=== PATIENT | female | born 1950 | race Asian ===

== ENCOUNTER 2018-07-14 18:31 | Inpatient (IN) | payer OTHER, MEDICAID ==
[~2018-07-14] VITALS: Ht 162.6 cm; Wt 54.4 kg
[~2018-07-14 18:31] MED LIST: ASPI81EC97 PO; FURO-570 PO; METO10TA10 PO; OMEP20TA56 PO; SIMV20TA1 PO; [UNRECOGNIZED DRUG - CODE] PO
--- NOTE | 2018-07-14 18:31 | NUR ---
PT BIBA BLS TO BED 2
[2018-07-14 18:39] VITALS: BP 102/67
[2018-07-14] MEDS ORDERED: [UNRECOGNIZED DRUG - CODE] PO (18:50)
[2018-07-14] MEDS ORDERED: SIMV10TA1 PO (18:50)
[2018-07-14] MEDS ORDERED: SENN-72 PO (18:50)
[2018-07-14] MEDS ORDERED: OSC500 PO (18:50)
[2018-07-14] MEDS ORDERED: KEP500 PO (18:50)
--- NOTE | 2018-07-14 19:10 | NUR ---
RECEIVED REPORT FROM AM RN. 68/F PTAY FROM [facility] FOR ABN LABS AND EVAL FOR RENAL CALCULI. PT ON MONITOR, VSS, SPO2 99% ON O2 2L NC, RR 13 EVEN AND UNLABORED. PT AWAKE, APHASIC, BEDBOUND WITH CONTRACTURES. PT HAS A L WRIST 22G IV. LUNG SOUNDS CLEAR BL. ABD SOFT ROUND NONTENDER. SACRAL WOUND NOTED. HX OSTEOPOROSIS, CONTRACTURES, PATHOGICAL FX, DYSPHAGIA, GERD, MALNUTRITION, DEMENTIA, ALZ, APHASIA, CHF, PAD. SAFETY MEASURES ENSURED. ER MD MADE AWARE.
[2018-07-14] MEDS ORDERED: NACL 0.9% 1,000 ML IV SCH (20:35)
[2018-07-14] MEDS ORDERED: ONDANSETRON 4 MG/2 ML VIAL IVP ONE (20:35)
[2018-07-14] MEDS ORDERED: ONDANSETRON 4 MG/2 ML VIAL IVP PRN (21:45)
[2018-07-14] MEDS ORDERED: ZOLPIDEM 5 MG TAB PO PRN (21:45)
[2018-07-14] MEDS ORDERED: ACETAMINOPHEN 325 MG TAB PO PRN (21:45)
--- NOTE | 2018-07-14 21:48 | NUR ---
SHADY, CANDY MAKER CALLED, UNABLE TO USE CBC THAT SHE SWATI EARLIER ON PT. PT DIFFICULT STICK PER SHADY, LAB DRAW WILL HAVE TO WAIT UNTIL NEW SHIFT AT 11PM. DR VALDEZ MADE AWARE
[2018-07-14 21:54] LABS: ALBUMIN 2.6 g/dL (3.4-5.0); ANION GAP 6.2 (8-16); CARBON DIOXIDE 32.9 mmol/L (21-32); CREATININE 1.7 mg/dL (0.6-1.3); POTASSIUM 4.1 mmol/L (3.5-5.1); TOTAL BILIRUBIN 0.2 mg/dL (0.0-1.0)
--- NOTE | 2018-07-14 22:00 | NUR ---
PT RESTING IN BED, VSS, RR EVEN AND UNLABORED. PT TAKEN TO CT AT THIS TIME
[2018-07-14 22:05] LABS: APPEARANCE,URINE SL CLOUDY (CLEAR); BILIRUBIN,URINE NEGATIVE (NEGATIVE); BLOOD, URINE 1+ (NEGATIVE); COLOR,URINE YELLOW (YELLOW); LEUKOCYTE ESTERASE ,URINE 1+ (NEGATIVE); NITRITE, URINE POSITIVE (NEGATIVE); UGLUCOSE NEGATIVE (NEGATIVE)
[2018-07-14 22:20] LABS: RBC,URINE 11-20 (MOD) /HPF (0-5); WBC,URINE 20-60 /HPF (0-5)
[2018-07-14] MEDS ORDERED: NACL 0.9% 1,000 ML IV ONE (22:25)
--- NOTE | 2018-07-14 22:25 | NUR ---
Patient will be admitted to care of DR. SOOD. Admited to TELE. Will go to room 120A. Belongings list completed. Report to DARIUS LR.
[2018-07-14] MEDS: NACL 0.9% 1,000 ML IV SCH (22:42)
[2018-07-14 22:45] VITALS: BP 153/97
--- NOTE | 2018-07-14 22:45 | NUR ---
REPORT RECEIVED FROM ED NURSE AT BEDSIDE. PT IN STABLE CONDITION. AAOX2. BOARD UPDATED AND INTRODUCED SELF TO PT. PT IS APHASIC. ON 2L VIA NC. POLST IN CHART. IV SITE PATENT AND INTACT LEFT WRIST 22G. SKIN WARM, DRY, AND INTACT BUT HAS SACRAL REDNESS. PT IS A FALL RISK. BED LOCKED IN LOW POSITION. CALL ROCHA WITHIN REACH.
[2018-07-14] MEDS ORDERED: FERR75LI22 PO (23:00)
[2018-07-14] MEDS ORDERED: POTA20SO16 PO (23:00)
[2018-07-14] MEDS ORDERED: ASCO500T45 PO (23:00)
[2018-07-14] MEDS ORDERED: KEP500L PO (23:00)
[2018-07-14 23:26] LABS: HEMOGLOBIN 12.9 g/dL (12.0-16.0); MEAN CORPUSCULAR HEMOGLOBIN 29 pg (27-31); MEAN CORPUSCULAR HGB CONC 30 g/dL (33-37); MEAN CORPUSCULAR VOLUME 96.5 fL (80-94); PLATELET COUNT (AUTO) 96 K/uL (140-450); RED BLOOD CELL COUNT(AUTO) 4.43 MIL/uL (4.20-5.40); RED CELL DISTRIBUTION WIDTH 14.9 % (11.6-13.7); WHITE BLOOD COUNT (AUTO) 11.1 K/uL (4.8-10.8)
[2018-07-14] MEDS ORDERED: PIPERACILLIN/TAZOBACTAM 3.375 GM VIAL IV ONE (23:51)
[2018-07-14 23:57] LABS: FREE T4 (FREE THYROXINE) 0.96 ng/dL (0.76-1.46); MAGNESIUM 2.9 mg/dL (1.8-2.4); PHOSPHORUS 2.5 mg/dL (2.5-4.9); PROTHROMBIN TIME 9.7 secs (10.8-13.4); THYROID STIMULATING HORMONE 4.5 uIU/mL (0.34-3.74)
[2018-07-15] VITALS: BP 111/52
--- NOTE | 2018-07-15 | NUR ---
MUNIR TEAGUE. PT TOLERATED WELL. NO S/S OF ADVERSE REACTIONS. Addendum: 07/15/18 at 0149 by Usama Verma RN OVERRIDDEN FROM PYXIS. IT WAS A NEW MED. DUPLICATE ORDER IN EMAR.
[2018-07-15] MEDS: PIPER/TAZO 3.375GM/D5W PREMIX 50 ML IV SCH ×4 (00:03→18:00)
[2018-07-15 00:07] LABS: HEMATOCRIT 38.7 % (36-48)
[2018-07-15 00:09] LABS: LYMPHOCYTES % (MANUAL) 65 % (20-46); MONOCYTES % (MANUAL) 2 % (5-12)
[2018-07-15] MEDS ORDERED: cefTRIAXone 1,000 MG VIAL ONE (00:33)
--- NOTE | 2018-07-15 00:45 | NUR ---
ROCEPHIN 1000MG HUNG. PT TOLERATED WELL. NEW ORDER AND NEW MED. DUPLICATE ORDER IN EMAR.
[2018-07-15] MEDS: NACL 0.45% 1,000 ML IV SCH ×2 (00:48→14:21)
--- NOTE | 2018-07-15 03:30 | NUR ---
PT VS STABLE. PT SLEEPING SUPINE. CHEST EXPANSION IS VISIBLE. WILL CONTINUE TO MONITOR.
[2018-07-15 04:00] VITALS: BP 123/52
[2018-07-15] MEDS: CALCIUM CARBONATE 500 MG TAB PO SCH ×4 (05:00→21:58)
[2018-07-15] MEDS ORDERED: PIPERACILLIN/TAZOBACTAM 3.375 GM VIAL IV ONE (05:10)
--- NOTE | 2018-07-15 05:15 | NUR ---
MUNIR TEAGUE. DUPLICATE ORDER DUE TO MED BEING NEW AND OVERRIDDEN. OSCAL DENIED BY PATIENT.
[2018-07-15 06:51] LABS: EOSINOPHILS # (AUTO) 0.1 K/uL (0-0.4); HEMOGLOBIN 11.1 g/dL (12.0-16.0); LYMPHOCYTES # (AUTO) 2.6 K/uL (2.5-16.5)
[2018-07-15 07:00] LABS: BASOPHILS % (AUTO) 0.2 % (0.0-2.0); EOSINOPHILS % (AUTO) 2.4 % (0.0-4.0); HEMATOCRIT 35.4 % (36-48); LYMPHOCYTES % (AUTO) 47.7 % (20.5-51.1); MEAN CORPUSCULAR HEMOGLOBIN 30 pg (27-31); MEAN CORPUSCULAR HGB CONC 31 g/dL (33-37); MONOCYTES # (AUTO) 0.5 K/uL (0.8-1.0); MONOCYTES % (AUTO) 8.2 % (1.7-9.3); NEUTROPHILS # (AUTO) 2.3 K/uL (1.8-7.7); NEUTROPHILS % (AUTO) 41.5 % (42.2-75.2); PLATELET COUNT (AUTO) 66 K/uL (140-450); RED BLOOD CELL COUNT(AUTO) 3.69 MIL/uL (4.20-5.40); RED CELL DISTRIBUTION WIDTH 14.5 % (11.6-13.7); WHITE BLOOD COUNT (AUTO) 5.5 K/uL (4.8-10.8)
[2018-07-15 07:11] LABS: ANION GAP 6.8 (8-16); CARBON DIOXIDE 31.7 mmol/L (21-32); CREATININE 1.5 mg/dL (0.6-1.3); POTASSIUM 3.5 mmol/L (3.5-5.1)
--- NOTE | 2018-07-15 07:25 | NUR ---
REPORT GIVEN TO AM NURSE AT BEDSIDE. PT IN STABLE CONDITION.
--- NOTE | 2018-07-15 07:26 | NUR ---
RECEIVED REPORT FROM TRUCK DESPATCHER NURSE ADELINE AT BEDSIDE FOR CONTINUITY OF CARE. PT IS AWAKE BUT APHASIC. INTRODUCED SELF AND UPDATED BOARD. NO SOB, NO COUGH. LUNG SOUNDS DIMINISHED. O2 SAT 94% ON O2 NC 2L. WITH SACRAL REDNESS. COVERED WITH OPTIFOAM DRESSING. IV TO L WRIST 22G INTACT. NO SIGNS OF DISTRESS. CALL LIGHT WITHIN REACH. BED IN LOW POSITION, WHEELS LOCKED. BED ALARM ON. WILL CONTINUE TO MONITOR.
[2018-07-15 07:27] LABS: CHOL/HDL RATIO 3.8 (1-4.5); MAGNESIUM 2.6 mg/dL (1.8-2.4); PHOSPHORUS 2.5 mg/dL (2.5-4.9)
[2018-07-15] MEDS: NACL 0.9% 1,000 ML IV SCH (07:41)
[2018-07-15 08:00] VITALS: BP 136/74
[2018-07-15] MEDS ORDERED: NON-FORMULARY ITEM (Ferrous Sulfate 330 MG) PO SCH (08:00)
[2018-07-15] MEDS ORDERED: OMEPRAZOLE MAGNESIUM 20 MG PO SCH (09:00)
[2018-07-15] MEDS ORDERED: NON-FORMULARY ITEM (Multivit with Min #53/FA/K/Q10 (Dekas Plus Softgel) 1 EACH) PO SCH (09:00)
[2018-07-15] MEDS ORDERED: NON-FORMULARY ITEM (Aspirin (Aspir 81) 81 MG) PO SCH (09:00)
[2018-07-15] MEDS ORDERED: POTASSIUM CHLORIDE 30 MEQ PO SCH (09:00)
--- NOTE | 2018-07-15 09:12 | NUR ---
PATIENT HAS BEEN SCREENED AND CATEGORIZED HIGH NUTRITION RISK. PATIENT WILL BE SEEN WITHIN 1-2 DAYS OF ADMISSION. 07/15/18 07/16/[address]
[2018-07-15] MEDS: FERROUS SULFATE 300 MG/5 ML UDC PO SCH ×2 (09:33→09:40)
[2018-07-15] MEDS: POTASSIUM CHLORIDE 10 MEQ TABER PO SCH ×2 (09:34→09:42)
[2018-07-15] MEDS: ASCORBIC ACID 500 MG TAB PO SCH ×2 (09:34→09:43)
[2018-07-15] MEDS: MULTIVITAMIN/MINERALS 1 TAB PO SCH ×2 (09:34→09:43)
[2018-07-15] MEDS: SENNA 8.6 MG TAB PO SCH ×2 (09:34→09:41)
[2018-07-15] MEDS: DOCUSATE SODIUM 100 MG GELCAP PO SCH ×2 (09:35→09:41)
[2018-07-15] MEDS: ECOTRIN 81 MG TABEC PO SCH ×2 (09:35→09:42)
[2018-07-15] MEDS: PANTOPRAZOLE 40 MG TABEC PO SCH ×2 (09:35→09:42)
[2018-07-15] MEDS: levETIRAcetam 100 MG/ML ORASYR PO SCH ×2 (09:35→09:41)
--- NOTE | 2018-07-15 09:44 | NUR ---
GAVE PT'S SCHEDULED MEDS. AFTER OPENING ALL MEDS. PT SPIT OUT MEDS AND REFUSED MEDS. NON-ADMIN SCHEDULED MEDS AND WASTED ALL OPENED MEDS. PT ALSO REFUSED BREAKFAST TRAY ASSISTED BY BOLT MAKER. PT'S DAUGHTER WAS AT BEDSIDE AND SAID TO TRY TO FEED PT AGAIN LATER. PT WENT BACK TO SLEEP. NO SIGNS OF DISTRESS. BED ALARM ON. BED IN LOW POSITION, WILL CONTINUE TO MONITOR.
--- NOTE | 2018-07-15 11:07 | NUR ---
CHECKED ON PT IN ROOM. PT WITH DECREASED APPETITE. REFUSED TO FINISH BREAKFAST TRAY. SLEEPING NOW WITH VISIBLE RESPIRATIONS, NO SIGNS OF DISTRESS. CALL LIGHT WITHIN REACH. BED IN LOW POSITION, BED ALARM ON. WILL CONTINUE TO MONITOR.
[2018-07-15 12:00] VITALS: BP 133/45
--- NOTE | 2018-07-15 14:45 | NUR ---
PT'S DAUGHTERS AT BEDSIDE. DR. ROBBINS CAME IN AND SPOKE WITH PT AND FAMILY. PT SLEEPING RIGHT NOW. DID NOT WANT TO EAT LUNCH TRAY DUE TO PT FALLING ASLEEP. PER DAUGHTER NOMI, STATED "SHE IS GETTING MORE SLEEP NOW THAN SHE DID BEFORE." NO SIGNS OF DISTRESS. BED IN LOW POSITION, WHEELS LOCKED. WILL CONTINUE TO MONITOR.
[2018-07-15 16:00] VITALS: BP 100/44
--- NOTE | 2018-07-15 16:03 | NUR ---
07/15/18 RD INITIAL ASSESSMENT COMPLETED PLEASE REFER TO NUTRITION ASSESSMENT UNDER CARE ACTIVITY FOR ESTIMATED NUTRITIONAL NEEDS. 1. CONTINUE REGULAR PUREE DIET TOLERATED 2. RECOMMEND ENSURE ENLIVE TID WITH MEALS 3. RD TO FOLLOW-UP 2-3 DAYS, HIGH RISK ESTELLA WATSON, RD
--- NOTE | 2018-07-15 19:30 | NUR ---
ENDORSED PT TO PRICING ACTUARY NURSE KANE AT BEDSIDE FOR CONTINUITY OF CARE. PT IN STABLE CONDITION.
--- NOTE | 2018-07-15 19:31 | NUR ---
RECEIVED REPORT FROM ADOLPH RN DAYSHIFT NURSE AT BEDSIDE FOR CONTINUITY OF CARE, PT IN STABLE CONDITION.
--- NOTE | 2018-07-15 20:00 | NUR ---
PT IN LOW BED, TURNED TO RIGHT SIDE WITH SIDE RAILS UP X 2 AND ALL FALLS PRECAUTIONS IN PLACE. PT HAS N/C RUNNING AT 2 LITERS 02 IS 100% . PT REMAINS ON TELE MONITORING AND B/P IS 128/60 AND P 58. PT TEMP IS 97.4 TAKEN AUXILIARY. PT EYE PUPILS EQUAL AND REACTIVE AND SHE HAS NO S/S OF PAIN OR DISTRESS. PT HAS IV SITE 22G ON R WRIST ASYMPTOMATIC AND RUNNING D 5 1/2 NS.
[2018-07-15] MEDS ORDERED: DONEPEZIL HCL 10 MG PO SCH (21:00)
[2018-07-15] MEDS: DONEPEZIL 10 MG TAB PO SCH (21:55)
[2018-07-15] MEDS: SIMVASTATIN 10 MG TAB PO SCH (21:56)
--- NOTE | 2018-07-15 22:00 | NUR ---
PT HAD DIFFICULTY SWALLOWING ORDERED MEDICATION, INFORMED RESIDENT MD WITH REQUEST FOR SWALLOW EVALUATION. PT TURNED , CHANGED AND REPOSITIONED.
[2018-07-16 01:59] VITALS: BP 162/70
[2018-07-16 04:00] VITALS: BP 112/41
[2018-07-16] MEDS: CALCIUM CARBONATE 500 MG TAB PO SCH ×3 (05:00→21:52)
--- NOTE | 2018-07-16 06:18 | NUR ---
PT ASLEEP , SHE WAS TURNED, CHANGED AND REPOSITIONED AND IS SLEEPING SOUNDLY.
[2018-07-16] MEDS: PIPER/TAZO 3.375GM/D5W PREMIX 50 ML IV SCH ×4 (06:22→18:05)
[2018-07-16 06:39] LABS: BASOPHILS % (AUTO) 0.2 % (0.0-2.0); EOSINOPHILS # (AUTO) 0.2 K/uL (0-0.4); EOSINOPHILS % (AUTO) 3.1 % (0.0-4.0); HEMATOCRIT 38.3 % (36-48); LYMPHOCYTES # (AUTO) 2.5 K/uL (2.5-16.5); MEAN CORPUSCULAR HEMOGLOBIN 30 pg (27-31); MEAN CORPUSCULAR HGB CONC 31 g/dL (33-37); MEAN CORPUSCULAR VOLUME 94.4 fL (80-94); MONOCYTES # (AUTO) 0.5 K/uL (0.8-1.0); MONOCYTES % (AUTO) 7.9 % (1.7-9.3); NEUTROPHILS # (AUTO) 3.1 K/uL (1.8-7.7); NEUTROPHILS % (AUTO) 48.8 % (42.2-75.2); PLATELET COUNT (AUTO) 80 K/uL (140-450); RED BLOOD CELL COUNT(AUTO) 4.06 MIL/uL (4.20-5.40); RED CELL DISTRIBUTION WIDTH 13.8 % (11.6-13.7); WHITE BLOOD COUNT (AUTO) 6.3 K/uL (4.8-10.8)
[2018-07-16 06:54] LABS: ANION GAP 6.7 (8-16); CARBON DIOXIDE 30.3 mmol/L (21-32); CREATININE 1.5 mg/dL (0.6-1.3)
[2018-07-16 07:07] LABS: MAGNESIUM 2.6 mg/dL (1.8-2.4); PHOSPHORUS 1.9 mg/dL (2.5-4.9)
--- NOTE | 2018-07-16 07:30 | NUR ---
GAVE REPORT AT BEDSIDE TO RN DAY SHIFT NURSE PT IN STABLE CONDITION./
--- NOTE | 2018-07-16 07:32 | NUR ---
RECEIVED BEDSIDE REPORT TO EDGE BASTER NURSE. PATIENT IS AWAKE. UNABLE TO TALK, APHASIC. PATIENT IS CONTRACTED. FALL RISK PROTOCOL IN PLACE. BED ALARM IS ON, PATIENT IS BEDBOUND, INCONTINENT. SKIN HAS SACRAL REDNESS. TELE MONITOR IN PLACE. SEIZURE PRECAUTIONS IN PLACE. R WRIST 22G INFUSING 1/2 NS AT 100, CLEAN, DRY AND INTACT. BED IN LOW POSITION, CALL LIGHT WITHIN REACH. WILL CONTINUE TO MONITOR THE PATIENT
[2018-07-16 08:00] VITALS: BP 116/37
[2018-07-16] MEDS: DOCUSATE SODIUM 100 MG GELCAP PO SCH ×2 (09:00→21:52)
[2018-07-16] MEDS: FERROUS SULFATE 300 MG/5 ML UDC PO SCH ×2 (09:04→16:52)
[2018-07-16] MEDS: levETIRAcetam 100 MG/ML ORASYR PO SCH ×2 (09:06→21:52)
[2018-07-16] MEDS: SENNA 8.6 MG TAB PO SCH ×2 (09:06→21:53)
[2018-07-16] MEDS: NACL 0.45% 1,000 ML IV SCH ×2 (09:07→12:50)
--- NOTE | 2018-07-16 09:25 | NUR ---
ADMINISTERED MEDS. UNABLE TO GIVE COLACE BECAUSE PATIENT CANNOT SWALLOW TABLET. CRUSHED AND ADMINISTERED MEDS. PATIENT TOLERATED WELL. WILL CONTINUE TO MONITOR PATIENT. DAUGHTER AT BEDSIDE.
[2018-07-16] MEDS ORDERED: TAMSULOSIN 0.4 MG CAP PO SCH (09:30)
[2018-07-16] MEDS ORDERED: KCL 20 MEQ/WATER INJ PREMIX 200 ML IV SCH (10:00)
[2018-07-16] MEDS: KETOROLAC 15 MG/ML VIAL IVP PRN (10:30)
--- NOTE | 2018-07-16 10:49 | NUR ---
ADMINISTERED PRN PAIN MEDS. FAMILY SAID SHE LOOKS LIKE SHE IS IN PAIN. FACIAL GRIMACING. INFUSING POTASSIUM AT 25ML/HR. IV IS CLEAN, DRY AND INTACT. WILL CONTINUE TO MONITOR
[2018-07-16] MEDS ORDERED: SODIUM PHOS / POTASSIUM PHOS 1 PKT PDR PO SCH (11:30)
[2018-07-16 12:00] VITALS: BP 137/50
--- NOTE | 2018-07-16 12:39 | NUR ---
PATIENT CURRENTLY REFUSING TO EAT LUNCH. WILL TRY AGAIN LATER. BED IN LOW POSITION. CALL LIGHT WITHIN REACH. WILL CONTINUE TO MONITOR
--- NOTE | 2018-07-16 14:09 | NUR ---
TRIED TO ADMINISTER MEDS ORDERED CRUSHED CALCIUM AND PUT WITH JELLO PATIENT REFUSES AND SPITS IT OUT. WILL TELL DR. WILL CONTINUE TO MONITOR PATIENT. BED IN LOW POSITION. CALL LIGHT WITHIN REACH.
[2018-07-16 16:00] VITALS: BP 126/53
--- NOTE | 2018-07-16 16:06 | NUR ---
PATIENT IS SLEEPING. NO SIGNS OF DISTRESS ON 2L NC. BED IN LOW POSITION. CALL LIGHT WITHIN REACH. WILL CONTINUE TO MONITOR THE PATIENT
--- NOTE | 2018-07-16 18:19 | NUR ---
PATIENT IS SLEEPING. IV IS CLEAN, DRY AND INTACT. WILL CONTINUE TO MONITOR THE PATIENT
--- NOTE | 2018-07-16 19:21 | NUR ---
GAVE BEDSIDE REPORT TO SOIL TECHNOLOGIST NURSE. PATIENT ENDORSED IN STABLE CONDITION
--- NOTE | 2018-07-16 19:21 | NUR ---
RECIEVED REPORT AT BEDSIDE FROM RN DAYSHIFT NURSE LIBORIO APARICIO IN STABLE CONDITION.
[2018-07-16 20:00] VITALS: BP 112/45
--- NOTE | 2018-07-16 20:04 | NUR ---
* ST NOTE * Pt seen at bedside. Pt alert and moderately cooperative, appearing to not be in pain 2/2 to lack of groaning, facial grimacing, etc. Bedside dysphagia and oral mechanism exams completed. See evaluation report for further details. Pt tolerating 4/4 alternating PO trials of puree apple sauce 3-4 CCs at a time via a spoon w/o s/s of aspiration or choking. Pt however tolerating 3/5 alternating PO trials of nectar-thick lemon water 3-4 CCs at a time via a spoon w/o s/s of aspiration, but also demonstrating labial leakage out of left side of oral cavity in 1 trial and expelling bolus out of mouth in another trial despite maximal verbal, tactile and visual cueing from the clinician to consume bolus and not spit it out. It is thus recommended pt may be D/Seth off NPO status and may begin PO diet consistency of Puree textures w/nectar-thick liquids by spoon only. Pt and caregiver/nsg education completed regarding aspiration precautions and safe swallow compensatory strategy training, w/pt indifferent but nsg/caregiver verbalizing understanding and agreement w/clinician's recommendations. Pt however presents with poor prognosis for obtaining nutrition/hydration PO alone, and would thus benefit from an RD evaluation. No further ST follow up recommended at this time. Pt and caregivers/nsg education completed regarding results of evaluation; benefits of abiding by aspiration precautions and recommended PO diet consistency; and prognosis for improvement; with pt indifferent but caregiver/nsg verbalizing understanding and agreement w/clinician's recommendations. Recommend: - D/C NPO - PO Diet consistency of PUREE TEXTURES W/NECTAR-THICK LIQUIDS for all meals - Pt requires total assistance w/feeding - Maintain STRICT ASPIRATION PRECAUTIONS DURING PO INTAKE 2/2 to pt's Alzheimer's dementia, aphasia and dysphagia Dxs - Feeder to SIT PT UP AT 70-90 DEGREE ANGLE DURING PO INTAKE, FEED PT SLOWLY, ALTERNATING BTWN SOLIDS & LIQUIDS, AND UTILIZING SMALL BITES/SIPS - PO medication administration CRUSHED IN PUREE TEXTURES - RD evaluation 2/2 to pt presenting w/poor prognosis for maintaining adequate nutrition/hydration PO No further ST follow up recommended at this time. G8996 CL G8997 CK G8998 NOMS Level 3 Time In/Out: 19:05 - 19:35
--- NOTE | 2018-07-16 20:20 | NUR ---
PT IN LOW BED WITH ALL FALLS ,SEIZURE AND ASPIRATION PRECAUTIONS IN PLACE. PT HAS POTASSIUM RUNNING AT 25MLS/HR AND 1/2NS AT 80MLS AN HR. PT SLEEPING LIGHT AROUSABLE TO TOUCH. PT HAS NO FACIAL GRIMACING AT THIS TIME, V/S FOLLOWS. T 98.4 P 57 R 18 B/P 112/45 02 99 WITH 2L VIA N/C.
--- NOTE | 2018-07-16 20:45 | NUR ---
SPEECH THERAPIST ARMANDO DID SWALLOW EVALUATION AT BEDSIDE. ARMANDO RECCOMENDED THAT PT HAVE PUREE AND NECTAR THICK WELL CONTINUING WITH ASPIRATION PRECAUTIONS, AND SHE ALSO SUGGESTED GT PLACEMENT IF FAMILY AND PT IS AGREEABLE.
[2018-07-16] MEDS: DONEPEZIL 10 MG TAB PO SCH (21:52)
[2018-07-16] MEDS: SIMVASTATIN 10 MG TAB PO SCH (21:53)
[2018-07-17] VITALS: BP 127/52
--- NOTE | 2018-07-17 | NUR ---
PT IN BED NO S/S OF PAIN OR DISTRESS, PT TURNED CHANGED AND REPOSITIONED. V/S T 98.4 P 57 R 18 B/*P 112/45 02 100 WITH 2 L VIA N/C.
[2018-07-17] MEDS: PIPER/TAZO 3.375GM/D5W PREMIX 50 ML IV SCH ×2 (01:10→05:52)
[2018-07-17] MEDS: NACL 0.45% 1,000 ML IV SCH ×2 (01:10→13:50)
[2018-07-17 04:00] VITALS: BP 154/96
--- NOTE | 2018-07-17 04:20 | NUR ---
PT TURNED AND CHANGED V/S FOLLOWS T 98.0 P 61 R 20 B/P 154/96 02 100 WITH 2L VIA N/C.
--- NOTE | 2018-07-17 05:30 | NUR ---
PT DISPLAYED FACIAL GRIMACING AND LITTLE WHIMPERS. PT GIVEN PRN TORADOL IVP WITH POSITIVE EFFECT.
[2018-07-17] MEDS: CALCIUM CARBONATE 500 MG TAB PO SCH ×2 (05:49→13:18)
[2018-07-17] MEDS: KETOROLAC 15 MG/ML VIAL IVP PRN (05:55)
[2018-07-17 06:50] LABS: BASOPHILS % (AUTO) 0.2 % (0.0-2.0); EOSINOPHILS # (AUTO) 0.2 K/uL (0-0.4); EOSINOPHILS % (AUTO) 2.4 % (0.0-4.0); HEMATOCRIT 38.4 % (36-48); LYMPHOCYTES # (AUTO) 3.3 K/uL (2.5-16.5); LYMPHOCYTES % (AUTO) 46.5 % (20.5-51.1); MEAN CORPUSCULAR HEMOGLOBIN 30 pg (27-31); MEAN CORPUSCULAR HGB CONC 31 g/dL (33-37); MEAN CORPUSCULAR VOLUME 94.3 fL (80-94); MONOCYTES # (AUTO) 0.6 K/uL (0.8-1.0); MONOCYTES % (AUTO) 8.4 % (1.7-9.3); NEUTROPHILS % (AUTO) 42.5 % (42.2-75.2); PLATELET COUNT (AUTO) 89 K/uL (140-450); RED BLOOD CELL COUNT(AUTO) 4.07 MIL/uL (4.20-5.40); RED CELL DISTRIBUTION WIDTH 13.7 % (11.6-13.7)
[2018-07-17 07:23] LABS: MAGNESIUM 2.4 mg/dL (1.8-2.4); PHOSPHORUS 1.9 mg/dL (2.5-4.9)
--- NOTE | 2018-07-17 07:30 | NUR ---
GAVE REPORT TO ALESSANDRA RN AT BEDSIDE FOR CONTINUITY OF CARE, PT N STABLE CONDITION.
--- NOTE | 2018-07-17 07:32 | NUR ---
RECEIVED BEDSIDE REPORT FROM COMMUNITY DEVELOPMENT MANAGER NURSE. PATIENT IS SLEEPING. NO SIGNS OF DISTRESS ON 2L NC. PATIENT IS APHASIC. BEDBOUND, INCONTINENT. PATIENT IS CONTRACTED. TELE MONITOR IS IN PLACE. IV 22G R WRIST INFUSING 1/2NS AT 80. CLEAN, DRY AND INTACT. NO SIGNS OF PAIN OR DISTRESS. BED IN LOW POSITION. CALL LIGHT WITHIN REACH. FALL PRECAUTIONS IN PLACE. SEIZURE PRECAUTIONS IN PLACE. ASPIRATION PRECAUTIONS
[2018-07-17 07:33] LABS: ANION GAP 4.3 (8-16); CARBON DIOXIDE 31.4 mmol/L (21-32); CREATININE 1.3 mg/dL (0.6-1.3); POTASSIUM 3.7 mmol/L (3.5-5.1)
[2018-07-17 08:00] VITALS: BP 108/50
[2018-07-17] MEDS ORDERED: LANSOPRAZOLE 30 MG CAPDR GT SCH (08:22)
[2018-07-17] MEDS ORDERED: TAMSULOSIN 0.4 MG CAP PO SCH (08:30)
[2018-07-17] MEDS: FERROUS SULFATE 300 MG/5 ML UDC PO SCH (08:46)
[2018-07-17] MEDS: levETIRAcetam 100 MG/ML ORASYR PO SCH (08:47)
[2018-07-17] MEDS: SENNA 8.6 MG TAB PO SCH (08:49)
[2018-07-17] MEDS ORDERED: POTASSIUM CHLORIDE 20% 40 MEQ/15 ML UDC GT SCH (09:00)
[2018-07-17] MEDS ORDERED: ASPIRIN 81 MG TAB.CHEW GT SCH (09:00)
[2018-07-17] MEDS ORDERED: ASCORBIC ACID 500 MG/5 ML ORASYR GT SCH (09:00)
[2018-07-17] MEDS ORDERED: MULTIVITAMIN/MINERALS 15 ML UDBTL GT SCH (09:00)
[2018-07-17] MEDS: POTASSIUM CHLORIDE 10 MEQ TABER PO SCH (09:00)
[2018-07-17] MEDS ORDERED: DOCUSATE 100 MG/10 ML UDC GT SCH (09:00)
--- NOTE | 2018-07-17 09:22 | NUR ---
CRUSHED MEDS. MIXED WITH VANILLA PUDDING. PATIENT KEPT SPITTING IT OUT AT THE END BUT STILL ADMINISTERED TO PATIENT. PATIENT TOLERATED WELL. BED IN LOW POSITION. CALL LIGHT WITHIN REACH. WILL CONTINUE TO MONITOR THE PATIENT
--- NOTE | 2018-07-17 10:00 | NUR ---
OPTICAL SYSTEMS ENGINEER IN WITH PATIENT. SHE IS CLEANING THE PATIENT AND GIVING HER A BED BATH. NO SIGNS OF DISTRESS. WILL CONTINUE TO MONITOR
--- NOTE | 2018-07-17 10:21 | NUR ---
WOUND CARE NOTE: SKIN ASSESSMENT DONE WITH PRIMARY RN FOR LOW PILY SCORE AT RISK, NO REDNESS NOTICE, OLD HEALED SCAR TO SACRAL COCCYX AND R/L INNER BUTTOCKS. RIGHT HALLUX 0.5X0.2 CM DRY ABRASION. AREA CLEAN NO S/S INFECTION. PRESSURE INJURY PREVENTION INTERVENTIONS IN PLACE. DR. CA MADE AWARE.
--- NOTE | 2018-07-17 11:38 | NUR ---
PATIENT IS SLEEPING. NO SIGNS OF DISTRESS ON ROOM AIR. BED IN LOW POSITION. CALL LIGHT WITHIN REACH. WILL CONTINUE TO MONITOR
[2018-07-17 12:00] VITALS: BP 118/61
--- NOTE | 2018-07-17 12:11 | NUR ---
CM NOTE PER RAGINI MAYFIELD, PATIENT GOING TO [facility] RM [address] MAHMOOD. PER HEAVENLY OF [facility] PH# [phone], SPOUT TENDER TIME 1400 GOING TO [facility]. NUMBER TO CALL FOR REPORT PH# [phone]. CORNELL MCCOY AWARE. Addendum: 07/17/18 at 1220 by Zohreh Madrid CM PER CHARGE NURSE BAUDILIO, PATIENT CAN GO [facility]
[2018-07-17] MEDS ORDERED: ROC2I IV (12:14)
[2018-07-17] MEDS ORDERED: LACT10CA PO (12:14)
[2018-07-17] MEDS ORDERED: LACTOBACILLUS RHAMNOSUS GG 1 EACH CAP PO SCH (12:15)
[2018-07-17] MEDS ORDERED: PIPE1SOL IV (13:16)
--- NOTE | 2018-07-17 13:30 | NUR ---
GAVE TELEPHONE REPORT TO NURSE HASTINGS AT [facility]. ANSWERED ALL QUESTIONS AT THIS TIME. GAVE MY CALL BACK NUMBER. TOLD THEM THE PATIENT JUST GOT A CRITICAL BACK FOR E COLI ESBL MDRO IN URINE. THEY SAID IF THERE WERE CONCERNS OR ISSUES THEY WOULD CALL ME. TOLD THEM TRANSPORT WILL PICK HER UP SOON.
--- NOTE | 2018-07-17 14:21 | NUR ---
PATIENT IS SLEEPING, PATIENT IS UNABLE TO SIGN PAPERWORK. TALKED TO SON, DORIS, EDUCATED ON DISEASE, ABN S/SX, WHEN TO GO TO THE NEAREST ER, FOLLOW UP Mariya ZARAGOZA IN 2 WEEKS, LEFT ABISAI CONTACT INFO IN DISCHARGE PACKET, EDUCATED ON MEDS. HE VERBALIZED UNDERSTANDING. NO OTHER QUESTIONS AT THIS TIME.
--- NOTE | 2018-07-17 14:50 | NUR ---
GAVE SMALL REPORT TO TRANSPORT. REMOVED TELE MONITOR. REMOVED ID BANDS, KEPT IV ON BUT SALINE LOCKED IT. IV NEEDED AT [facility]. PATIENT LEFT IN STABLE CONDITION ON A GURNEY
--- NOTE | 2018-07-17 15:17 | NUR ---
[employer] Nurse Note: Late entry for earlier today: I faxed patient's updated medical information to [facility] (the admission coordinator from [facility] is also the admission coordinator from [facility] , [facility] and [facility] share same fax number. Per admission coordinator Nico at [facility], patient may return to room 22B at [facility] anytime today, accepting physician is , case finisher Zohreh griffith aware.
[2018-07-18] MEDS ORDERED: LANSOPRAZOLE 30 MG CAPDR GT SCH (06:30)
[2018-07-18] MEDS ORDERED: LACTOBACILLUS RHAMNOSUS GG 1 EACH CAP PO SCH (09:00)
== END 2018-07-17 14:50 | DRG 693 ==
LOC: MED 18:31 → MTU 21:41
PROVIDERS: ADMIT General Practice; ATTEND General Practice
DX: N13.2 Hydronephrosis with renal and ureteral calculous obstruction (principal); E43 Unspecified severe protein-calorie malnutrition; R53.2 Functional quadriplegia; E87.0 Hyperosmolality and hypernatremia; R47.01 Aphasia; N17.0 Acute kidney failure with tubular necrosis; N39.0 Urinary tract infection, site not specified; Z66 Do not resuscitate; I73.9 Peripheral vascular disease, unspecified; G30.9 Alzheimer's disease, unspecified; E78.00 Pure hypercholesterolemia, unspecified; F02.80 Dementia in other diseases classified elsewhere, unspecified severity, without behavioral disturbance, psychotic disturbance, mood disturbance, and anxiety; I50.9 Heart failure, unspecified; K21.9 Gastro-esophageal reflux disease without esophagitis; I11.0 Hypertensive heart disease with heart failure; E86.0 Dehydration; E87.8 Other disorders of electrolyte and fluid balance, not elsewhere classified; G40.909 Epilepsy, unspecified, not intractable, without status epilepticus; R13.10 Dysphagia, unspecified; E87.6 Hypokalemia; E83.41 Hypermagnesemia; E83.39 Other disorders of phosphorus metabolism; Z79.82 Long term (current) use of aspirin; Z79.899 Other long term (current) drug therapy
CPT/HCPCS: 36415; 71045; 80048; 80053; 81001; 82150; 82948; 83036; 83690; 83735; 83880; 84100; 84439; 84443; 84484; 85025; 85610; 85730; 87081; 87086; 87186; 92610; 96374; 99285; C1758; J0696; J1885; J2405; J2543; J3480; J7030; J7060; Q0092

== ENCOUNTER 2024-02-19 12:01 | Emergency (ER) | payer OTHER, MEDICAID ==
[~2024-02-19] VITALS: Ht 154.9 cm; Wt 73.0 kg
[~2024-02-19 12:01] MED LIST changes: +ASCO500T95 PO; +FERR75LI22 PO; +KEP500L PO; +LACT10CA PO; -METO10TA10 PO; +OSC500 PO; +POTA20SO16 PO; +SENN-72 PO; +SIMV-371 PO; -SIMV20TA1 PO; +[UNRECOGNIZED DRUG - CODE] PO
[2024-02-19 12:07] VITALS: BP 144/85; PULSE 96; RESP 14; TEMP 98.5; O2SAT 94
[2024-02-19 13:15] VITALS: O2SAT 98
[2024-02-19 14:23] VITALS: BP 144/85; PULSE 96; RESP 14; TEMP 98.5; O2SAT 98
== END 2024-02-19 14:22 ==
LOC: MED 12:01
DX: K94.23 Gastrostomy malfunction (principal); I11.0 Hypertensive heart disease with heart failure; I50.9 Heart failure, unspecified; K21.9 Gastro-esophageal reflux disease without esophagitis; F03.90 Unspecified dementia, unspecified severity, without behavioral disturbance, psychotic disturbance, mood disturbance, and anxiety; Z98.890 Other specified postprocedural states; Z79.899 Other long term (current) drug therapy; Z79.82 Long term (current) use of aspirin
CPT/HCPCS: 43762; 99284